=== PATIENT | male | born 1930 | race Caucasian/White ===

== ENCOUNTER 2017-12-31 06:48 | Observation (INO) | payer MEDICARE, OTHER ==
[2017-12-30 15:14] LABS: BASOPHILS % (AUTO) 0.4 % (0-1); EOSINOPHILS # (AUTO) 0.4 X10'3 (0-0.9); EOSINOPHILS % (AUTO) 5.6 % (0-6); HEMATOCRIT 41.2 % (42.0-52.0); HEMOGLOBIN 14.5 g/dl (14.0-17.9); LYMPHOCYTES # (AUTO) 1.4 X10'3 (1.1-4.8); MEAN CORPUSCULAR HEMOGLOBIN 32.1 PG (27.0-31.0); MEAN CORPUSCULAR HGB CONC 35.1 % (33.0-36.5); MEAN CORPUSCULAR VOLUME 91.6 FL (78-98); MEAN PLATELET VOLUME 8.3 FL (7.4-10.4); MONOCYTES # (AUTO) 0.8 X10'3 (0-0.9); MONOCYTES % (AUTO) 12.1 % (2-12); NEUTROPHILS % (AUTO) 60.9 % (42-75); PLATELET COUNT 201 X10'3 (140-440); RED CELL DISTRIBUTION WIDTH 13.3 % (11.5-14.5); WHITE BLOOD COUNT 6.5 X10'3 (4.5-11.0)
[2017-12-30 15:25] LABS: ALBUMIN 3.6 G/DL (3.4-5.0); ANION GAP 7 (8-16); BLOOD UREA NITROGEN 26 MG/DL (7-18); CALCIUM 8.9 MG/DL (8.5-10.1); CHLORIDE 106 MMOL/L (99-107); CREATININE 1.13 MG/DL (0.60-1.10); GLUCOSE 87 MG/DL (70-104); PARTIAL THROMBOPLASTIN TIME 25 SECONDS (22-32); POTASSIUM 4.4 MMOL/L (3.5-5.1); PROTHROMBIN TIME 10.5 SECONDS (9.0-12.0); SODIUM 142 MMOL/L (135-145); TOTAL CARBON DIOXIDE 28.6 MMOL/L (24-32); eGFR 62 ML/MIN
[~2017-12-31] VITALS: Ht 157.5 cm; Wt 68.5 kg
[2017-12-31] VITALS (30 sets, daily range): BP systolic 98–159; BP diastolic 54–89
[~2017-12-31 06:48] MED LIST: ASPI81TA61 PO; CELE-85 PO; LOSA1TAB36 PO; NITR0.4T51 SL; OMEP40CA37 PO
[2017-12-31] MEDS ORDERED: normal saline 1000ml 1,000 ML IV SCH (07:05)
[2017-12-31] MEDS ORDERED: diphenhydrAMINE 25mg capsule PO PRN (07:05)
[2017-12-31] MEDS ORDERED: IRON-12 PO (07:24)
[2017-12-31] MEDS ORDERED: ISOS30TA6 PO (07:24)
[2017-12-31] MEDS ORDERED: AMLO2.5T2 PO (07:24)
[2017-12-31] MEDS ORDERED: VITC500T PO (07:24)
[2017-12-31] MEDS ORDERED: METO25TA6 PO (07:24)
[2017-12-31] MEDS ORDERED: ATOR20TA PO (07:24)
[2017-12-31] MEDS ORDERED: heparin 1,000unit/ml 10ml vial 10 ML ONE (09:17)
[2017-12-31] MEDS ORDERED: iohexol 350 MG/1 ML 200ml bottle ONE ×2 (09:17→11:16)
[2017-12-31] MEDS ORDERED: nitroGLYCERIN-Tridil 50MG/D5W 250 ML IV ONE (09:17)
[2017-12-31] MEDS ORDERED: LIDOcaine 1%/PF (10mg/ml) 5ml vial ONE ×2 (09:38)
[2017-12-31] MEDS ORDERED: midazolam 2 mg/2 ml injection ONE (10:04)
[2017-12-31] MEDS ORDERED: DOPamine 400mg/D5W 250ml 250 ML IV ONE (10:17)
[2017-12-31] MEDS ORDERED: ticagrelor 90mg tablet ONE (11:39)
[2017-12-31] MEDS ORDERED: atropine 0.1mg/ml 10ml syringe ONE (11:41)
[2017-12-31] MEDS ORDERED: aspirin 325mg tablet PO ONE (12:35)
[2017-12-31] MEDS ORDERED: acetaminophen 325mg tablet PO PRN (12:40)
[2017-12-31] MEDS ORDERED: proCHLORperazine 10 MG/2 ml inj IV PRN (12:40)
[2017-12-31] MEDS ORDERED: OXAZEpam 15mg capsule PO PRN (12:40)
[2017-12-31] MEDS ORDERED: cyclobenzaprine 10mg tablet PO PRN (12:40)
[2017-12-31] MEDS ORDERED: magnesium hydroxide 30ml (MOM) UD suspension PO PRN (12:40)
[2017-12-31] MEDS: normal saline 1000ml 1,000 ML IV SCH ×4 (15:14→22:31)
[2017-12-31] MEDS ORDERED: nitroGLYCERIN 0.4mg SUBLingual tab SL PRN (18:55)
[2017-12-31] MEDS: ticagrelor 90mg tablet PO SCH (20:00)
[2017-12-31] MEDS ORDERED: atorvastatin 20mg tablet PO SCH (21:00)
[2017-12-31] MEDS: docusate sod 100mg capsule PO SCH (21:32)
[2017-12-31] MEDS: isosorbide mononitrate 30mg tab.SR.24H PO SCH (21:32)
[2017-12-31] MEDS: metoprolol tartrate 25mg tablet PO SCH (21:32)
[2018-01-01 03:00] VITALS: BP 126/63
[2018-01-01 05:24] LABS: BASOPHILS % (AUTO) 0.3 % (0-1); EOSINOPHILS # (AUTO) 0.2 X10'3 (0-0.9); EOSINOPHILS % (AUTO) 2.1 % (0-6); HEMATOCRIT 35.3 % (42.0-52.0); HEMOGLOBIN 12.1 g/dl (14.0-17.9); LYMPHOCYTES # (AUTO) 0.8 X10'3 (1.1-4.8); LYMPHOCYTES % (AUTO) 10.6 % (21-51); MEAN CORPUSCULAR HEMOGLOBIN 31.5 PG (27.0-31.0); MEAN CORPUSCULAR HGB CONC 34.3 % (33.0-36.5); MEAN CORPUSCULAR VOLUME 91.8 FL (78-98); MEAN PLATELET VOLUME 8.4 FL (7.4-10.4); MONOCYTES # (AUTO) 0.7 X10'3 (0-0.9); MONOCYTES % (AUTO) 9.5 % (2-12); NEUTROPHILS % (AUTO) 77.5 % (42-75); PLATELET COUNT 159 X10'3 (140-440); RED BLOOD COUNT 3.85 X10'6 (4.70-6.10); WHITE BLOOD COUNT 7.7 X10'3 (4.5-11.0)
[2018-01-01 06:00] VITALS: BP 120/60
[2018-01-01 06:29] LABS: ALANINE AMINOTRANSFERASE 21 U/L (12-78); ALBUMIN/GLOBULIN RATIO 1.2 (1.1-1.5); ALKALINE PHOSPHATASE 53 IU/L (46-116); ANION GAP 10 (8-16); ASPARTATE AMINO TRANSFERASE 24 U/L (10-37); BILIRUBIN,TOTAL 1.1 MG/DL (0.1-1.0); BLOOD UREA NITROGEN 17 MG/DL (7-18); BUN/CREATININE RATIO 18.7 (5.4-32.0); CALCIUM 7.9 MG/DL (8.5-10.1); CHLORIDE 107 MMOL/L (99-107); CREATININE 0.91 MG/DL (0.60-1.10); GLUCOSE 95 MG/DL (70-104); POTASSIUM 3.5 MMOL/L (3.5-5.1); SODIUM 140 MMOL/L (135-145); TOTAL CARBON DIOXIDE 23.1 MMOL/L (24-32); TOTAL PROTEIN 5.6 G/DL (6.4-8.2); eGFR 79 ML/MIN
[2018-01-01] MEDS ORDERED: TICA90TA PO (06:46)
[2018-01-01] MEDS ORDERED: amLODIPine 2.5mg tablet PO SCH (08:00)
[2018-01-01] MEDS ORDERED: celeCOXIB 100mg capsule PO SCH (08:00)
[2018-01-01] MEDS ORDERED: HYDROchlorothiazide 25mg tablet PO SCH (08:00)
[2018-01-01] MEDS ORDERED: losartan 25mg tablet PO SCH (08:00)
[2018-01-01] MEDS ORDERED: ascorbic acid 500mg tablet PO SCH (08:00)
[2018-01-01] MEDS: docusate sod 100mg capsule PO SCH (08:00)
[2018-01-01] MEDS ORDERED: ferrous sulfate 325mg tablet PO SCH (08:00)
[2018-01-01] MEDS ORDERED: vitamin B comp w/Vit. C tab 1 TAB TABLET PO SCH (08:00)
[2018-01-01] MEDS ORDERED: aspirin 81mg tab.chew PO SCH ×2 (08:30)
[2018-01-01] MEDS ORDERED: HYDROchlorothiazide 12.5mg capsule PO SCH (08:58)
[2018-01-01] MEDS: ticagrelor 90mg tablet PO SCH (09:07)
[2018-01-01] MEDS: isosorbide mononitrate 30mg tab.SR.24H PO SCH (09:08)
[2018-01-01] MEDS: metoprolol tartrate 25mg tablet PO SCH (09:23)
[2018-01-01 11:00] VITALS: BP 125/54
== END 2018-01-01 11:50 | disposition home or self-care (01) ==
LOC: SSTAY O 06:48 → PCU 3S 15:30 → SSTAY O 15:30 → PCU 3S 15:30
PROVIDERS: ADMIT Internal Medicine Cardiovascular Disease; ATTEND Internal Medicine Cardiovascular Disease
DX: I25.110 Atherosclerotic heart disease of native coronary artery with unstable angina pectoris (principal); I10 Essential (primary) hypertension; E78.5 Hyperlipidemia, unspecified; J44.9 Chronic obstructive pulmonary disease, unspecified; Z79.82 Long term (current) use of aspirin; Z79.899 Other long term (current) drug therapy
CPT/HCPCS: 36415; 80048; 80053; 83880; 85025; 85347; 85610; 85730; 87070; 93005; A6257; A6402; A6449; C1725; C1769; C1874; C1885; C1887; C1894; C9600; G0378; J0461; J1265; J1644; J2001; J2250; J3490; J7030; Q0163; Q9967; 99152; 99153; A4620